=== PATIENT | female | born 1970 | race Caucasian/White ===

== ENCOUNTER 2018-03-12 00:37 | Emergency (ER) | payer SELFPAY ==
[2018-03-12] MEDS ORDERED: Ketorolac Tromethamine 60 MG/2 ML VIAL ONE (01:16)
--- NOTE | 2018-03-12 10:19 | CT ---
PRELIMINARY REPORT/[facility]/EMERGENTY AFTER-HOURS PROCEDURE CT Right Lower Extremity Without IV Contrast, Knee EXAM DATE/TIME: 03/12/2018 3:29 AM CLINICAL HISTORY: 48 years old, female; Injury or trauma; Fall; Initial encounter; Abrasion; Knee; Right; Patient HX: Celina r 3; 48 yof presents for right knee pain after falling yesterday on wet floor landing on the right kn ee. Reports mild pain and swelling. States she can not flex the knee. Denies loc, head injury, back o r neck pain TECHNIQUE: CT of the Right lower extremity without intravenous contrast was performed. Exam focused on the knee. COMPARISON: No relevant prior studies available. FINDINGS: Bones/joints: Subchondral sclerosis of the medial tibial plateau. No fracture. Soft tissues: Prepatellar soft tissue contusion. IMPRESSION: 1. Prepatellar soft tissue contusion. 2. No fracture. Thank you for allowing us to participate in the care of your patient. Dictated and Authenticated by: Bernardino Duenas MD 03/12/2018 4:26 AM Central Time ([place] & [place]) FINAL REPORT: FINDINGS/IMPRESSION: I agree with the preliminary report provided. No acute fracture is demonstrated. There is prepatellar soft tissue fluid, likely related to contusi on. POS: [facility]
--- NOTE | 2018-03-12 11:14 | RAD ---
RIGHT KNEE FOUR VIEWS: INDICATIONS: Fell in shower with right knee pain. COMPARISON: None. FINDINGS: No acute fracture or subluxation is evident. No definite joint capsular distention is noted. There is some prepatellar soft tissue swelling. IMPRESSION: Prepatellar soft tissue contusion. No acute osseous abnormality. POS: [facility]
== END 2018-03-12 05:39 | disposition home or self-care (01) ==
LOC: ERS 00:37
DX: S80.01XA Contusion of right knee, initial encounter (principal); F17.210 Nicotine dependence, cigarettes, uncomplicated; W17.89XA Other fall from one level to another, initial encounter
CPT/HCPCS: 96372; J1885

== ENCOUNTER 2021-11-30 14:14 | Outpatient (CLI) | payer OTHER ==
[2021-11-30 15:49] LABS: #Eosinphils 0.2 10x3/uL (0.0-0.5); #Monocytes 0.4 10x3/uL (0.0-1.1); #Neutrophils 3.1 10x3/uL (1.5-8.4); %Basophils 0.4 % (0.0-2.0); %Lymphocytes 43.3 % (18.0-47.0); %Monocytes 6.3 % (0.0-10.0); %Neutrophils 46.9 % (40.0-75.0); Hemoglobin 14.7 g/dL (12.0-15.5); Mean Corpuscular HGB CONC 34.6 g/dL (32.0-36.0); Mean Corpuscular Hemoglobin 31.5 pg (27.0-33.0); Mean Platelet Volume 11.3 fl (7.4-10.4); Platelet Count 204 10x3/uL (150-450); RBC Distribution Width 12.7 % (11.5-14.5); Red Blood Cell (RBC) Count 4.67 10x6/uL (3.90-5.03); White Blood Cell (WBC) Count 6.7 10x3/uL (3.5-10.5)
[2021-11-30 16:06] LABS: Anion Gap 16 mmol/L (10-20); BUN (Urea Nitrogen) 13 mg/dL (9.8-20.1); Calc. Creatinine Clearance 0 mL/min (70-130); Calcium 8.9 mg/dL (7.8-10.44); Carbon Dioxide 22 mmol/L (22-29); Chloride 103 mmol/L (98-107); Estimated GFR 85; Glucose 156 mg/dL (70-105); Potassium 3.6 mmol/L (3.5-5.1); Sodium 137 mmol/L (136-145)
== END 2021-11-30 14:15 | disposition home or self-care (01) ==
LOC: LABBT 14:14
PROVIDERS: ATTEND Surgery
DX: Z01.818 Encounter for other preprocedural examination (principal); K43.9 Ventral hernia without obstruction or gangrene; Z20.822 Contact with and (suspected) exposure to COVID-19
CPT/HCPCS: 80048; 85025; 87811; 93005; 93010

== ENCOUNTER 2021-12-03 07:15 | Day surgery (SDC) | payer OTHER ==
[2021-12-01 13:40] VITALS: BMI 37.2
[2021-12-03] MEDS ORDERED: Lidocaine 1% MPF 2 ML VIAL ONE ×2 (08:01→09:27)
[2021-12-03] MEDS ORDERED: Bupivacaine/Epinephrine 0.25% 30 ML VIAL ONE (09:04)
[2021-12-03] MEDS ORDERED: Midazolam HCl 2 mg/2 ml Vial ONE (09:10)
[2021-12-03] MEDS ORDERED: fentaNYL Citrate/PF 100 MCG/2 ML SYRINGE ONE ×2 (09:10→10:45)
[2021-12-03] MEDS ORDERED: SUGAMMADEX SODIUM 200 MG/2 ML VIAL ONE (09:11)
[2021-12-03] MEDS ORDERED: Ketorolac Tromethamine 30 MG/ML VIAL ONE (09:27)
[2021-12-03] MEDS ORDERED: PROPOFOL 200 MG/20 ML VIAL ONE (09:27)
[2021-12-03] MEDS ORDERED: Ondansetron PF 4 MG/2 ML Vial ONE (09:27)
[2021-12-03] MEDS ORDERED: Dexamethasone 20 MG/5 ML VIAL ONE (09:27)
[2021-12-03] MEDS ORDERED: Rocuronium Bromide 10 MG/ML (10ML VIAL) ONE (09:27)
[2021-12-03] MEDS ORDERED: Fentanyl 100 MCG/2 ML VIAL ONE ×2 (11:00→11:34)
[2021-12-03] MEDS ORDERED: Promethazine HCl 25 MG/ML VIAL ONE (11:01)
[2021-12-03] MEDS ORDERED: HYDROmorphone 0.5 MG/0.5 ML SYRINGE ONE (11:23)
[2021-12-03] MEDS ORDERED: HYDROcodone/Acetaminophen 5/325 mg Tablet ONE (11:49)
== END 2021-12-03 14:50 | disposition home or self-care (01) ==
LOC: SDC 07:15
PROVIDERS: ATTEND Surgery
PROC: 0WUF4JZ Supplement Abdominal Wall with Synthetic Substitute, Percutaneous Endoscopic Approach (ICD-10-PCS; principal; 2021-12-03)
PROC: 8E0W4CZ Robotic Assisted Procedure of Trunk Region, Percutaneous Endoscopic Approach (ICD-10-PCS; principal; 2021-12-03)
DX: K43.2 Incisional hernia without obstruction or gangrene (principal); K42.9 Umbilical hernia without obstruction or gangrene; F17.210 Nicotine dependence, cigarettes, uncomplicated
CPT/HCPCS: C1781; J1100; J1170; J1885; J2250; J2405; J2550; J2704; J3010

== ENCOUNTER 2022-03-28 17:47 | Emergency (ER) | payer OTHER ==
[2022-03-28] MEDS ORDERED: Ketorolac Tromethamine 30 MG/ML VIAL ONE (19:40)
== END 2022-03-28 21:02 | disposition home or self-care (01) ==
LOC: ERS 17:47
DX: M67.833 Other specified disorders of tendon, right wrist (principal); S20.219A Contusion of unspecified front wall of thorax, initial encounter; F17.210 Nicotine dependence, cigarettes, uncomplicated; W18.09XA Striking against other object with subsequent fall, initial encounter
CPT/HCPCS: 71046; 96372; J1885

== ENCOUNTER 2022-12-29 14:26 | Emergency (ER) | payer OTHER, SELFPAY ==
[2022-12-29 15:40] LABS: Bacteria/HPF None Seen HPF (None Seen); Bilirubin Negative (Negative); Blood, Urine Negative (Negative); CAUTI Indications for Culture Pelvic or flank pain; Clarity Clear (Clear); Glucose, Urine (Dipstick) Normal (Negative); Ketone, Urine Negative (Negative); Leukocyte Negative Leu/uL (Negative); Nitrite Negative (Negative); Protein, Urine (Dipstick) Negative (Neg-Trace); RBC/HPF 0-3 HPF (0-3); Specific Gravity, Urine 1.029 (1.002-1.036); Squamous Epithelial 0-3 HPF (0-3); Urobilinogen Normal mg/dL (Less than 2); WBC/HPF 0-3 HPF (0-3)
[2022-12-29 15:42] LABS: Urine Culture Reflex No No
[2022-12-29 16:32] LABS: #Eosinphils 0.1 thou/uL (0.0-0.7); #Monocytes 0.6 thou/uL (0.11-0.59); #Neutrophils 2.9 thou/uL (1.40-6.50); %Basophils 0.7 % (0.0-1.0); %Eosinophils 2.3 % (0.0-10.0); %Monocytes 9.7 % (0.0-10.0); %Neutrophils 51.1 % (42.0-75.0); Hematocrit 43.6 % (36.0-47.0); Hemoglobin 14.7 g/dL (12.0-16.0); Mean Corpuscular HGB CONC 33.7 g/dL (32.0-36.0); Mean Platelet Volume 10.9 fL (7.4-10.4); Platelet Count 180 10x3/uL (130-400); RBC Distribution Width 12.2 % (11.5-14.5); Red Blood Cell (RBC) Count 4.59 mill/uL (4.20-5.40); White Blood Cell (WBC) Count 5.7 10x3/uL (4.8-10.8)
[2022-12-29 16:58] LABS: ALT (SGPT) 104 U/L (8-55); AST (SGOT) 63 U/L (5-34); Albumin 3.9 g/dL (3.5-5.0); Alkaline Phosphatase 75 U/L (40-110); Anion Gap 11 mmol/L (10-20); BUN (Urea Nitrogen) 16 mg/dL (9.8-20.1); Bilirubin, Total 0.3 mg/dL (0.2-1.2); Calc. Creatinine Clearance 0 mL/min (70-130); Calcium 9.1 mg/dL (7.8-10.44); Carbon Dioxide 26 mmol/L (22-29); Chloride 102 mmol/L (98-107); Estimated GFR 88; Globulin 3.5 g/dL (2.4-3.5); Glucose 100 mg/dL (70-105); Lipase 25 U/L (8-78); Potassium 4.1 mmol/L (3.5-5.1); Protein, Total 7.4 g/dL (6.0-8.3); Sodium 135 mmol/L (136-145)
== END 2022-12-29 17:21 | disposition home or self-care (01) ==
LOC: ERS 14:26
DX: K43.9 Ventral hernia without obstruction or gangrene (principal); F17.210 Nicotine dependence, cigarettes, uncomplicated
CPT/HCPCS: 36415; 74177; 80053; 81001; 83690; 85025

== ENCOUNTER 2023-11-30 08:27 | Emergency (ER) | payer OTHER, SELFPAY ==
[2023-11-30] MEDS ORDERED: Iopamidol-370 76% 500 ML MDV (1 ML CHARGE) ONE (09:02)
[2023-11-30 09:38] LABS: Bacteria/HPF None Seen HPF (None Seen); Bilirubin Negative (Negative); Blood, Urine Negative (Negative); CAUTI Indications for Culture Dysuria,urgency,freq; Clarity Clear (Clear); Glucose, Urine (Dipstick) Normal (Negative); Ketone, Urine Negative (Negative); Leukocyte Negative Leu/uL (Negative); Nitrite Negative (Negative); Protein, Urine (Dipstick) Negative (Neg-Trace); RBC/HPF 0-3 HPF (0-3); Specific Gravity, Urine 1.022 (1.002-1.036); WBC/HPF 0-3 HPF (0-3); pH, Urine 5.5 (5.0-9.0)
[2023-11-30 09:42] LABS: Urine Culture Reflex No No
[2023-11-30 09:48] LABS: Pregnancy Test - Urine (BHCG) Negative (Negative); Pregu Control Background? CLEAR/WHITE (CLR/WHITE); Pregu Control Bar Appear? YES (CONTROL BAR); Specific Gravity 1.022 (1.002-1.036)
[2023-11-30 10:00] LABS: #Basophils Less than 0.03 10x3/uL (0.0-0.2); %Basophils 0.4 % (0.0-1.0); %Lymphocytes 42.4 % (21.0-51.0); %Monocytes 8.3 % (0.0-10.0); %Neutrophils 45.7 % (42.0-75.0); Hematocrit 44.6 % (36.0-47.0); Hemoglobin 15.2 g/dL (12.0-16.0); Mean Corpuscular HGB CONC 34.1 g/dL (32.0-36.0); Mean Corpuscular Hemoglobin 31.3 pg (27.0-31.0); Mean Corpuscular Volume 91.8 fL (78.0-98.0); Mean Platelet Volume 11.9 fL (7.4-10.4); Platelet Count 128 10x3/uL (130-400); RBC Distribution Width 12.5 % (11.5-14.5); Red Blood Cell (RBC) Count 4.86 mill/uL (4.20-5.40)
[2023-11-30 10:02] LABS: ALT (SGPT) 92 U/L (8-55); AST (SGOT) 86 U/L (5-34); Albumin 3.5 g/dL (3.5-5.0); Alkaline Phosphatase 84 U/L (40-110); Anion Gap 11 mmol/L (10-20); BUN (Urea Nitrogen) 14 mg/dL (9.8-20.1); Bilirubin, Total 0.4 mg/dL (0.2-1.2); Calc. Creatinine Clearance 0 mL/min (70-130); Calcium 8.7 mg/dL (7.8-10.44); Carbon Dioxide 27 mmol/L (22-29); Chloride 106 mmol/L (98-107); Estimated GFR 98; Globulin 3.7 g/dL (2.4-3.5); Glucose 93 mg/dL (70-105); Lipase 52 U/L (8-78); Potassium 4.1 mmol/L (3.5-5.1); Protein, Total 7.2 g/dL (6.0-8.3); Sodium 140 mmol/L (136-145)
== END 2023-11-30 13:20 | disposition home or self-care (01) ==
LOC: ERS 08:27
DX: K43.9 Ventral hernia without obstruction or gangrene (principal); R60.0 Localized edema; F17.210 Nicotine dependence, cigarettes, uncomplicated
CPT/HCPCS: 71045; 74177; 80053; 81001; 81025; 83690; 85025; Q9967